=== PATIENT | female | born 1985 | race Two or more races ===

== ENCOUNTER 2017-10-04 10:33 | Emergency (ER) | payer OTHER ==
[~2017-10-04] VITALS: Ht 165.1 cm; Wt 98.9 kg
[~2017-10-04 10:33] MED LIST: HUMULIN 70/30 V10 ML; METFORMIN HCL500 MG PO; PRILOSEC OTC20 MG; ZESTRIL30 MG
[2017-10-04] MEDS ORDERED: SIMVASTATIN40 MG (10:55)
== END 2017-10-04 14:21 | disposition home or self-care (01) ==
LOC: ER 10:33
DX: R73.9 Hyperglycemia, unspecified (principal)

== ENCOUNTER → 2017-11-14 | Emergency (ER) | payer OTHER ==
[~2017-11-14] VITALS: Ht 165.1 cm; Wt 98.9 kg
[~2017-11-14] MED LIST changes: +CYCLOBENZAPRINE10 MG PO; +KETOROLAC TROME10 MG PO; +ORPHENADRINE C100 MG PO; +SIMVASTATIN40 MG
== END | disposition home or self-care (01) ==
LOC: ER 17:56
DX: S32.2XXA Fracture of coccyx, initial encounter for closed fracture (principal); W01.0XXA Fall on same level from slipping, tripping and stumbling without subsequent striking against object, initial encounter; Y93.89 Activity, other specified; Y92.89 Other specified places as the place of occurrence of the external cause; Y99.8 Other external cause status; M51.26 Other intervertebral disc displacement, lumbar region